=== PATIENT | female | born 1980 | race Two or more races ===

== ENCOUNTER 2018-04-11 11:36 | Emergency (ER) | payer OTHER ==
[~2018-04-11] VITALS: Ht 162.6 cm; Wt 62.6 kg
[2018-04-11 11:53] VITALS: BP 112/75
[2018-04-11 12:23] LABS: Basophils # (auto) 0 uL; Basophils % (auto) 0.3 % (0.0-2.0); Eosinophils # (auto) 0 uL; Hematocrit 39.1 % (36.0-46.0); Lymphocytes # (auto) 1.4 uL; Monocytes # (auto) 0.3 uL; White Blood Cell 6.2 10^3/uL (4.4-10.8)
[2018-04-11 12:24] LABS: Eosinophils % (auto) 0.3 % (0.0-7.0); Hemoglobin 12.1 g/dL (12.2-16.2); Lymphocytes % (auto) 22.1 % (10.0-50.0); Mean Corpuscular Hemoglobin 22.4 pg (28.0-32.0); Mean Corpuscular Hgb Conc. 31.1 g/dL (32.0-36.0); Mean Corpuscular Volume 72.1 fL (80.0-100.0); Monocytes % (auto) 5.3 % (0.0-12.0); Neutrophils # (auto) 4.5 uL; Nucleated Red Blood Cells % 0.1 %; Platelet Count (auto) 236 10^3/uL (140-450); Red Blood Cells 5.42 10^6/uL (4.0-5.20); Red Cell Distribution Width 16.2 % (11.8-14.3)
[2018-04-11 12:38] LABS: BUN/Creatinine Ratio 10.7; Calcium 8.7 mg/dL (8.5-10.1)
== END 2018-04-11 14:00 | disposition home or self-care (01) ==
LOC: ER 11:36
DX: S63.501A Unspecified sprain of right wrist, initial encounter (principal); W01.198A Fall on same level from slipping, tripping and stumbling with subsequent striking against other object, initial encounter; Y93.89 Activity, other specified; Y99.8 Other external cause status; Y92.89 Other specified places as the place of occurrence of the external cause
CPT/HCPCS: 36415; 73110; 80048; 85025